=== PATIENT | female | born 1985 | race Caucasian/White ===

== ENCOUNTER 2017-01-21 23:30 | Observation (INO) | payer BC, OTHER ==
[2017-01-22] MEDS ORDERED: Sodium Chloride 0.9% 1,000 ML IV ONE ×3 (00:01→11:08)
[2017-01-22] MEDS ORDERED: Sodium Chloride 0.9% 1,000 ML ONE ×2 (00:06→04:59)
[2017-01-22 00:11] LABS: BASO % 0.4 % (0.0-2.0); EOS # 0.1 K/uL (0.0-0.7); EOS % 0.5 % (0.0-4.0); HEMATOCRIT 37.3 % (34.0-47.0); LYMPH # 3.8 K/uL (1.0-4.3); LYMPH % 36.6 % (20.0-40.0); MEAN CELL VOLUME 81.5 fL (81.0-99.0); MEAN CORPUSCULAR HEMOGLOBIN 26.7 pg (27.0-31.0); MEAN CORPUSCULAR HGB CONC 32.7 g/dL (33.0-37.0); MEAN PLATELET VOLUME 8.9 fL (7.2-11.7); MONO # 0.8 K/uL (0.0-0.8); MONO % 7.7 % (0.0-10.0); RED CELL DISTRIBUTION WIDTH 14.8 % (11.5-14.5); WHITE BLOOD COUNT 10.3 K/uL (4.8-10.8)
[2017-01-22 00:23] LABS: ALB/GLOB RATIO 1.5 (1.0-2.1); ALKALINE PHOSPHATASE 70 U/L (38-126); ALT/SGPT 30 U/L (9-52); AST/SGOT 24 U/L (14-36); BILIRUBIN,TOTAL 0.7 mg/dL (0.2-1.3); BLOOD UREA NITROGEN 9 mg/dL (7-17); CARBON DIOXIDE 18 mmol/L (22-30); CHLORIDE 101 mmol/L (98-107); GFR AFRICAN-AMERICAN > 60; GLUCOSE,RANDOM 90 mg/dL (65-105); POTASSIUM 3.9 mmol/L (3.6-5.2); SODIUM 136 mmol/L (132-148); TOTAL PROTEIN 7.8 g/dL (6.3-8.3)
[2017-01-22 03:37] LABS: RBC URINE 4 /hpf (0-3); URINE BACTERIA RARE (<OCC); URINE BILIRUBIN NEGATIVE (NEGATIVE); URINE BLOOD NEGATIVE (NEGATIVE); URINE COLOR Yellow (YELLOW); URINE GLUCOSE (UA) NORMAL (Normal); URINE KETONE 2+ mg/dL (NEGATIVE); URINE LEUKOCYTE ESTERASE NEG Leu/uL (Negative); URINE PROTEIN NEGATIVE (NEGATIVE); URINE UROBILINOGEN NORMAL mg/dL (0.2-1.0)
[2017-01-22] MEDS ORDERED: Capsaicin 0.025% Cream (60 gm) TOP STA (03:50)
[2017-01-22] MEDS ORDERED: Alum-Mag Hydrox-Simethicone Susp (30 mL) ONE (05:29)
[2017-01-22] MEDS ORDERED: Iodixanol 320 MG/ML 100 ML BOTTLE IV ONE (05:49)
--- NOTE | 2017-01-22 06:55 | C.PDOC ---
Time Seen by Provider: 01/21/17 23:56 Chief Complaint (Nursing): Abdominal Pain History Per: Patient Onset/Duration Of Symptoms: Days (3) Current Symptoms Are (Timing): Still Present Severity: Moderate Location Of Pain/Discomfort: Diffuse Quality Of Discomfort: Unable To Describe, "Pain" Associated Symptoms: Nausea, Vomiting, Diarrhea Alleviating Factors: None Last Bowel Movement: Today Additional History Per: Prior Records Past Medical History Reviewed: Historical Data, Nursing Documentation, Vital Signs Vital Signs: Last Vital Signs Temp 98.2 F 01/22/17 02:32 Pulse 55 L 01/22/17 05:50 Resp 17 01/22/17 05:50 BP 109/61 01/22/17 05:50 Pulse Ox 100 01/22/17 06:55 - Medical History PMH: Gastritis, Gastrointestinal Ulcer, Migraine Surgical History: Appendectomy (04/2014) - [facility] Procedures LAPAROSCOP APPENDECTOMY (05/07/14) Family History: States: Unknown Family Hx - Social History Hx Tobacco Use: Yes Hx Alcohol Use: Yes Hx Substance Use: Yes (Smokes Marijuana daily) - Immunization History Hx Tetanus Toxoid Vaccination: No Hx Influenza Vaccination: No Hx Pneumococcal Vaccination: No Review Of Systems Except As Marked, All Systems Reviewed And Found Negative. Constitutional: Negative for: Fever Cardiovascular: Negative for: Chest Pain Respiratory: Negative for: Shortness of Breath Gastrointestinal: Positive for: Nausea, Vomiting, Abdominal Pain, Diarrhea. Negative for: Melena, Hematochezia, Hematemesis Genitourinary: Negative for: Dysuria Musculoskeletal: Negative for: Neck Pain, Back Pain Skin: Negative for: Rash Neurological: Negative for: Weakness, Numbness, Seizures, Altered Mental Status Physical Exam - Physical Exam Appears: Other (Uncomfortable. Vomiting.) Skin: Normal Color, Warm, Dry Head: Atraumatic, Normacephalic Eye(s): bilateral: PERRL, EOMI Neck: Normal ROM, Supple Cardiovascular: Rhythm Regular Respiratory: Normal Breath Sounds, No Accessory Muscle Use Gastrointestinal/Abdominal: Soft, Tenderness (nonspecific), No Distention Back: No CVA Tenderness Extremity: Normal ROM Neurological/Psych: Oriented x3, Normal Motor, Normal Sensation ED Course And Treatment - Laboratory Results Result Diagrams: 01/22/17 00:06 01/22/17 00:06 Lab Interpretation: No Acute Changes Urine POC: Negative O2 Sat by Pulse Oximetry: 100 Pulse Ox Interpretation: Normal Progress - Interventions Interventions:: Observation, Intravenous fluid - Medications Administered Intravenous: Antiemetic, H-2 javy Disposition - Disposition Disposition Time: 07:00 Condition: FAIR - Clinical Impression Clinical Impression: Abdominal pain, Nausea and vomiting Physician Patient Turnover Patient Signed Over To: Josie Seals Handoff Comments: to f/up CT scan report and reassess/dispo pt.
[2017-01-22] MEDS ORDERED: Belladonna-Phenobarbital ONE (07:05)
--- NOTE | 2017-01-22 07:32 | CT ---
EXAM: CT Abdomen and Pelvis With Intravenous Contrast CLINICAL HISTORY: 31 years old, female; Pain; Abdominal pain; Prior surgery; Surgery type: Appendectomy; Patient HX: 05-07-14, . report faxed to [facility]; Additional info: Abdominal pain, vomiting, TECHNIQUE: Axial computed tomography images of the abdomen and pelvis with intravenous contrast. All CT scans at this facility use one or more dose reduction techniques, viz.: automated exposure control; ma/kV adjustment per patient size (including targeted exams where dose is matched to indication; i.e. head); or iterative reconstruction technique. Coronal and sagittal reformatted images were created and reviewed. CONTRAST: 100 mL of [id number] administered intravenously. EXAM DATE/TIME: 01/22/2017 5:39 AM COMPARISON: CT - ABD PELVIS IV CONTRAST ONLY 05/07/2014 5:56:41 PM FINDINGS: Lower thorax: No acute findings. ABDOMEN: Liver: Unremarkable. No mass. Gallbladder and bile ducts: Contracted gallbladder. No calcified stones. No ductal dilation. Pancreas: Unremarkable. No mass. No ductal dilation. Spleen: Unremarkable. No splenomegaly. Adrenals: Unremarkable. No mass. Kidneys and ureters: Unremarkable. No solid mass. No hydronephrosis. Stomach and bowel: Unremarkable. No dilatation of small or large bowel. No mucosal thickening. Appendix: Appendectomy. PELVIS: Bladder: Unremarkable. No mass. Reproductive: Unremarkable as visualized. ABDOMEN and PELVIS: Intraperitoneal space: Small amount of free fluid throughout the abdomen and pelvis. No free air. Bones/joints: No acute fracture. Soft tissues: Unremarkable. Vasculature: Unremarkable. No abdominal aortic aneurysm. Lymph nodes: No enlarged lymph nodes. IMPRESSION: Free fluid throughout abdomen and pelvis, no demonstrable etiology radiographically.
[2017-01-22] MEDS ORDERED: Morphine 4 MG/ML VIAL ONE (08:31)
--- NOTE | 2017-01-22 11:02 | CP.PCM.CON ---
History of Present Illness - History of Present Illness History of Present Illness: 31F w/ PMHx of gastritis presents to the ED w/ complaints of n/v/d and abdominal pain. Patient reports she has not been able to eat for the past three days. According to patient every time she eats she develops stomachaches. As per patient she decided to have fijian rice yesterday and about an hour after she developed fever/chills, nausea/vomiting, and diarrhea, non-bloody. At time of examination patient reported feeling slightly better. Patient reports having previous endoscopy at which time she was diagnosed with gastritis but cannot recall the year. She denies being on any medications at home. Last menstrual period was on 01/15/17. PMHx: as stated above Allergies: hydromorphone Surgical Hx: Appendectomy (2013) Review of Systems - Review of Systems Review of Systems: 12pt ROS unremarkable, except as stated in HPI Past Patient History - Past Medical History & Family History Past Medical History?: Yes - Past Social History Smoking Status: Light Smoker < 10 Cigarettes Daily - NEUROLOGICAL Hx Migraine: Yes - MUSCULOSKELETAL/RHEUMATOLOGICAL Hx Falls: No - GASTROINTESTINAL Hx Gastritis: Yes - PSYCHIATRIC Hx Substance Use: Yes (Smokes Marijuana daily) - SURGICAL HISTORY Hx Appendectomy: Yes (04/2014) - ANESTHESIA Hx Anesthesia: No Hx Anesthesia Reactions: No Hx Malignant Hyperthermia: No Meds Allergies/Adverse Reactions: Allergies Allergy/AdvReac Type Severity Reaction Status Date / Time hydromorphone [From Dilaudid] Allergy Verified 01/21/17 23:57 Physical Exam - Constitutional Appears: No Acute Distress, Other (sedated) - Head Exam Head Exam: ATRAUMATIC, NORMOCEPHALIC - Eye Exam Eye Exam: Normal appearance - ENT Exam ENT Exam: Mucous Membranes Moist - Respiratory Exam Respiratory Exam: NORMAL BREATHING PATTERN - Cardiovascular Exam Cardiovascular Exam: +S1, +S2 - GI/Abdominal Exam GI & Abdominal Exam: Soft, Tenderness - Extremities Exam Extremities exam: Negative for: calf tenderness - Neurological Exam Neurological exam: Alert - Psychiatric Exam Psychiatric exam: Normal Mood Results - Vital Signs Recent Vital Signs: Last Vital Signs Temp 98.1 F 01/22/17 08:14 Pulse 50 L 01/22/17 08:14 Resp 18 01/22/17 08:14 BP 123/78 01/22/17 08:14 Pulse Ox 100 01/22/17 08:14 - Labs Result Diagrams: 01/22/17 00:06 01/22/17 00:06 Assessment & Plan - Assessment and Plan (Free Text) Assessment: 31F w/ n/v/d & abdominal pain likely 2/2 gastroenteritis, r/o cholecystitis -NPO -Abd U/S demonstrated GB wall thickening @ 7mm and pericholecystic edema, will order HIDA to r/o acute cholecystitis -IVF -Anti-emetics/Analgesics -Appreciate GI recs -DVT/GI ppx Further recs per Dr. Daniel Fish PGY-2
--- NOTE | 2017-01-22 12:09 | CP.PCM.CON ---
<Jerson Santos - Last Filed: 01/22/17 12:17> History of Present Illness - History of Present Illness History of Present Illness: PGY4 Initial GI Note Poornima Bull is a 31F w/ hx of marijuana use and gastritis who presented to the ED with complaints of refractory vomiting. Pt states that onet has been for 12 hours. She denies any blood or coffee ground emesis. She states that she has had similar episodes two years ago and subsequently had an EGD which revealed only gastritis. Pt states that her episodes of vomiting were preceded by nausea for 2 days. She states that she also had fever, chills and diaphoresis. She also complains of abd pain, but was not able to establish a clear timeline. She notes that the pain coincided with her symptoms. Location diffuse but more in the epigastric area. Denies any aggravating or alleviating factors. Pt denies any recent sick contacts, abx use or hospitalization. She states that she also had inidan food which may have contributed to her symptoms. She also confirms using marijuana on a daily basis. Med hx: gastritis, refractory vomiting Surg hx: Denies Social hx: Etoh social, Smoking rarely, daily marijuana use Family hx: denies Endos hx: 2014 egd: gastritis as per pt Past Patient History - Past Medical History & Family History Past Medical History?: Yes - Past Social History Smoking Status: Light Smoker < 10 Cigarettes Daily - NEUROLOGICAL Hx Migraine: Yes - MUSCULOSKELETAL/RHEUMATOLOGICAL Hx Falls: No - GASTROINTESTINAL Hx Gastritis: Yes - PSYCHIATRIC Hx Substance Use: Yes (Smokes Marijuana daily) - SURGICAL HISTORY Hx Appendectomy: Yes (04/2014) - ANESTHESIA Hx Anesthesia: No Hx Anesthesia Reactions: No Hx Malignant Hyperthermia: No Meds Allergies/Adverse Reactions: Allergies Allergy/AdvReac Type Severity Reaction Status Date / Time hydromorphone [From Dilaudid] Allergy Verified 01/21/17 23:57 - Medications Medications: Current Medications Acetaminophen (Tylenol 325mg Tab) 650 mg PO Q6 PRN PRN Reason: Fever >100.4 F Sodium Chloride (Sodium Chloride 0.9%) 1,000 mls @ 90 mls/hr IV .Q11H7M ONE Stop: 01/22/17 22:14 Morphine Sulfate (Morphine) 2 mg IVP Q4 PRN PRN Reason: Pain, moderate (4-7) Ondansetron HCl (Zofran Inj) 4 mg IVP Q6H PRN PRN Reason: Nausea/Vomiting Promethazine HCl (Phenergan Inj) 25 mg IM Q6 PRN PRN Reason: Nausea/Vomiting Physical Exam - Constitutional Appears: In Acute Distress - Head Exam Head Exam: ATRAUMATIC, NORMOCEPHALIC - Eye Exam Eye Exam: Normal appearance - ENT Exam ENT Exam: Mucous Membranes Moist, Normal Exam - Respiratory Exam Respiratory Exam: Clear to Auscultation Bilateral, NORMAL BREATHING PATTERN. absent: Rales, Rhonchi, Wheezes, Respiratory Distress - Cardiovascular Exam Cardiovascular Exam: REGULAR RHYTHM, +S1, +S2 - GI/Abdominal Exam GI & Abdominal Exam: Guarding, Hyperactive Bowel Sounds, Soft, Tenderness ( epigastric area and RUQ). absent: Distended, Firm - Extremities Exam Extremities exam: Negative for: joint swelling, tenderness - Neurological Exam Neurological exam: Alert, Normal Gait, Oriented x3 - Psychiatric Exam Psychiatric exam: Agitated, Normal Affect Results - Vital Signs Recent Vital Signs: Last Vital Signs Temp 98.1 F 01/22/17 08:14 Pulse 50 L 01/22/17 08:14 Resp 18 01/22/17 08:14 BP 123/78 01/22/17 08:14 Pulse Ox 100 01/22/17 08:14 - Labs Result Diagrams: 01/22/17 00:06 01/22/17 00:06 Assessment & Plan - Assessment and Plan (Free Text) Assessment: Poornima Bull is a 31F w/ hx of chronic marijuana use who presents to the Ed with refractory vomiting. 1. Refractory Nausea and Vomiting, DDX: cyclic vomiting syndome vs gastroenteritis 2. Abd pain likely 2/2 to the above vs acute cholecystitis 3. Free fluid in abd; r/o cholecystitis Plan: -continue zofran for primary antiemetic, secondary promethazine -advance diet as tolerated - start on clears -culture stool, r/o c.diff -abd u/s to eval gallbladder contracted vs thicken wall on CT -CT abd reviewed with Dr. Mathew, gallbladder suspicious for contracted GM versus cholecystitis -surgery on board -support care -continue IV fluids D/W Dr. Mathew <Bradley Mathew - Last Filed: 01/22/17 15:05> Meds - Medications Medications: Current Medications Acetaminophen (Tylenol 325mg Tab) 650 mg PO Q6 PRN PRN Reason: Fever >100.4 F Sodium Chloride (Sodium Chloride 0.9%) 1,000 mls @ 90 mls/hr IV .Q11H7M ONE Stop: 01/22/17 22:14 Last Admin: 01/22/17 11:48 Dose: 90 mls/hr Ceftriaxone Sodium 1 gm/ (Sodium Chloride) 100 mls @ 100 mls/hr IVPB DAILY [facility] Last Admin: 01/22/17 13:02 Dose: 100 mls/hr Morphine Sulfate (Morphine) 2 mg IVP Q4 PRN PRN Reason: Pain, moderate (4-7) Last Admin: 01/22/17 11:50 Dose: 2 mg Ondansetron HCl (Zofran Inj) 4 mg IVP Q6H PRN PRN Reason: Nausea/Vomiting FIRST LINE Pantoprazole Sodium (Protonix Inj) 40 mg IVP DAILY [facility] Promethazine HCl (Phenergan Inj) 25 mg IM Q6 PRN PRN Reason: Nausea/Vomiting SECOND LINE Results - Vital Signs Recent Vital Signs: Last Vital Signs Temp 98.1 F 01/22/17 08:14 Pulse 50 L 01/22/17 08:14 Resp 18 01/22/17 08:14 BP 123/78 01/22/17 08:14 Pulse Ox 100 01/22/17 08:14 - Labs Result Diagrams: 01/22/17 00:06 01/22/17 00:06 Attending/Attestation - Attestation I have personally seen and examined this patient.: Yes I have fully participated in the care of the patient.: Yes I have reviewed all pertinent clinical information: Yes Notes (Text): 01/22/17 15:04 31 year old female with h/o marijuana use admitted with abdominal pain, nausea, and vomiting. 1. Abdominal pain 2. Nausea and vomiting Plan -GB looks abnormal on CT/US -recommend surgical evaluation -otherwsie ddx includes cyclic vomiting, gastroenteritis -labs ok -supportive care with IV hydration and pain control -anti-emetics as needed
--- NOTE | 2017-01-22 14:14 | US ---
HISTORY: ascites COMPARISON: CT abdomen and pelvis with contrast performed 01/22/17 TECHNIQUE: None available. FINDINGS: UTERUS: Measures 8.2 x 3.8 x 5.3 cm. Anteverted. ENDOMETRIUM: Measures 4 mm in diameter. CERVIX: No cervical abnormality identified. RIGHT OVARY: Measures 3.9 x 2.4 x 4.2 cm. 2.2 x 1.9 x 2.1 cm right ovarian follicle/cyst. Blood flow is demonstrated. LEFT OVARY: Measures 3.2 x 1.6 x 3.2 cm. Blood flow is demonstrated. FREE FLUID: Small fluid noted within the right and left lower quadrants. OTHER FINDINGS: None. IMPRESSION: 2.2 cm right ovarian follicle/cyst. Small free fluid noted within the right and left lower quadrants.
--- NOTE | 2017-01-22 14:17 | US ---
HISTORY: eval gallbadder, suspect cholecystitis COMPARISON: CT abdomen and pelvis with contrast performed 01/22/17 TECHNIQUE: Sonographic evaluation of the abdomen. FINDINGS: LIVER: Measures 14.2 cm in sagittal dimension and appears unremarkable. No focal hepatic mass identified. The main portal vein appears patent with normal directional flow. No intrahepatic bile duct dilatation. Small perihepatic ascites. GALLBLADDER: No gallstones. Gallbladder wall thickening measuring approximately 7 mm. Trace pericholecystic edema. Negative sonographic Brambila's sign as assessed by the seed pelleter. COMMON BILE DUCT: Measures 3 mm. PANCREAS: Not well visualized. RIGHT KIDNEY: Measures 11.3 x 3.8 x 4.8cm. No obstructing calculus or hydronephrosis identified. LEFT KIDNEY: Measures 11.8 x 4.9 x 5.0cm. No obstructing calculus or hydronephrosis identified. SPLEEN: Measures approximately 12.3 cm. AORTA: Limited views appear unremarkable. IVC: Limited views appear unremarkable. OTHER FINDINGS: None. IMPRESSION: Gallbladder wall thickening and trace pericholecystic edema. No evidence of gallstones. Negative sonographic Brambila's sign as assessed by the seed pelleter. Correlate clinically. Small perihepatic ascites.
[2017-01-22 16:08] VITALS: RESP 20
--- NOTE | 2017-01-22 17:42 | CP.PCM.PN ---
Subjective - Date & Time of Evaluation Date of Evaluation: 01/22/17 Time of Evaluation: 08:40 - Subjective Subjective: clinically same Objective - Vital Signs/Intake and Output Vital Signs (last 24 hours): Temp Pulse Resp BP Pulse Ox 98.5 F 60 20 96/58 L 98 01/22/17 15:00 01/22/17 15:00 01/22/17 15:00 01/22/17 15:00 01/22/17 15:00 Intake and Output: 01/22/17 01/22/17 06:59 18:59 Intake Total 360 Balance 360 - Medications Medications: Current Medications Acetaminophen (Tylenol 325mg Tab) 650 mg PO Q6 PRN PRN Reason: Fever >100.4 F Sodium Chloride (Sodium Chloride 0.9%) 1,000 mls @ 90 mls/hr IV .Q11H7M ONE Stop: 01/22/17 22:14 Last Admin: 01/22/17 11:48 Dose: 90 mls/hr Ceftriaxone Sodium 1 gm/ (Sodium Chloride) 100 mls @ 100 mls/hr IVPB DAILY [facility] Last Admin: 01/22/17 13:02 Dose: 100 mls/hr Morphine Sulfate (Morphine) 2 mg IVP Q4 PRN PRN Reason: Pain, moderate (4-7) Last Admin: 01/22/17 11:50 Dose: 2 mg Ondansetron HCl (Zofran Inj) 4 mg IVP Q6H PRN PRN Reason: Nausea/Vomiting FIRST LINE Pantoprazole Sodium (Protonix Inj) 40 mg IVP DAILY [facility] Promethazine HCl (Phenergan Inj) 25 mg IM Q6 PRN PRN Reason: Nausea/Vomiting SECOND LINE - Constitutional Appears: Well - Head Exam Head Exam: ATRAUMATIC, NORMAL INSPECTION, NORMOCEPHALIC - Eye Exam Eye Exam: EOMI, Normal appearance, PERRL Pupil Exam: NORMAL ACCOMODATION, PERRL - ENT Exam ENT Exam: Mucous Membranes Moist, Normal Exam - Neck Exam Neck Exam: Full ROM, Normal Inspection. absent: Lymphadenopathy - Respiratory Exam Respiratory Exam: Decreased Breath Sounds - Cardiovascular Exam Cardiovascular Exam: REGULAR RHYTHM, +S1, +S2 - GI/Abdominal Exam GI & Abdominal Exam: Soft, Diminished Bowel Sounds - Rectal Exam Rectal Exam: Deferred
--- NOTE | 2017-01-22 17:43 | CP.PCM.HP ---
Past Patient History - Past Medical History & Family History Past Medical History?: Yes - Past Social History Smoking Status: Light Smoker < 10 Cigarettes Daily - NEUROLOGICAL Hx Migraine: Yes - MUSCULOSKELETAL/RHEUMATOLOGICAL Hx Falls: No - GASTROINTESTINAL Hx Gastritis: Yes - PSYCHIATRIC Hx Substance Use: Yes (Smokes Marijuana daily) - SURGICAL HISTORY Hx Appendectomy: Yes (04/2014) - ANESTHESIA Hx Anesthesia: No Hx Anesthesia Reactions: No Hx Malignant Hyperthermia: No Meds Allergies/Adverse Reactions: Allergies Allergy/AdvReac Type Severity Reaction Status Date / Time hydromorphone [From Dilaudid] Allergy Verified 01/21/17 23:57 Physical Exam - Constitutional Appears: Well - Head Exam Head Exam: ATRAUMATIC, NORMAL INSPECTION, NORMOCEPHALIC - Eye Exam Eye Exam: EOMI, Normal appearance, PERRL Pupil Exam: NORMAL ACCOMODATION, PERRL - ENT Exam ENT Exam: Mucous Membranes Moist, Normal Exam - Neck Exam Neck exam: Positive for: Normal Inspection - Respiratory Exam Respiratory Exam: Decreased Breath Sounds - Cardiovascular Exam Cardiovascular Exam: REGULAR RHYTHM, +S1, +S2 - GI/Abdominal Exam GI & Abdominal Exam: Diminished Bowel Sounds, Soft - Rectal Exam Rectal Exam: Deferred Results - Vital Signs Recent Vital Signs: Last Vital Signs Temp 98.5 F 01/22/17 15:00 Pulse 60 01/22/17 15:00 Resp 20 01/22/17 15:00 BP 96/58 L 01/22/17 15:00 Pulse Ox 98 01/22/17 15:00 - Labs Result Diagrams: 01/22/17 00:06 01/22/17 00:06
--- NOTE | 2017-01-23 08:44 | CP.PCM.PN ---
<Leanna Pineda - Last Filed: 01/23/17 10:21> Subjective - Date & Time of Evaluation Date of Evaluation: 01/23/17 Time of Evaluation: 08:40 - Subjective Subjective: Gastroenterology Fellow/PGY5 Progress Note Patient notes continued right upper abdominal pain. No further vomiting after morphine last night. Admits to over ten episodes of bilious vomiting yesterday and one episode of diarrhea incontinence in ER. No further bowel movements. A 12 -point review of systems negative except for as above. Objective - Vital Signs/Intake and Output Vital Signs (last 24 hours): Temp Pulse Resp BP Pulse Ox 98.3 F 30 L 20 103/65 97 01/23/17 01:44 01/23/17 01:44 01/23/17 01:44 01/23/17 01:44 01/23/17 01:44 Intake and Output: 01/23/17 01/23/17 06:59 18:59 Intake Total 720 Balance 720 - Medications Medications: Current Medications Acetaminophen (Tylenol 325mg Tab) 650 mg PO Q6 PRN PRN Reason: Fever >100.4 F Ceftriaxone Sodium 1 gm/ (Sodium Chloride) 100 mls @ 100 mls/hr IVPB DAILY [facility] Last Admin: 01/22/17 13:02 Dose: 100 mls/hr Morphine Sulfate (Morphine) 2 mg IVP Q4 PRN PRN Reason: Pain, moderate (4-7) Last Admin: 01/22/17 11:50 Dose: 2 mg Ondansetron HCl (Zofran Inj) 4 mg IVP Q6H PRN PRN Reason: Nausea/Vomiting FIRST LINE Pantoprazole Sodium (Protonix Inj) 40 mg IVP DAILY [facility] Promethazine HCl (Phenergan Inj) 25 mg IM Q6 PRN PRN Reason: Nausea/Vomiting SECOND LINE - Constitutional Appears: Non-toxic, No Acute Distress - Head Exam Head Exam: ATRAUMATIC, NORMOCEPHALIC - Eye Exam Eye Exam: EOMI, PERRL Pupil Exam: PERRL. absent: Miosis, Mydriatic - ENT Exam ENT Exam: Mucous Membranes Moist, Normal Oropharynx - Neck Exam Neck Exam: Full ROM, Normal Inspection - Respiratory Exam Respiratory Exam: Clear to Ausculation Bilateral. absent: Rales, Rhonchi, Wheezes - Cardiovascular Exam Cardiovascular Exam: RRR, +S1, +S2. absent: Gallop, Rubs - GI/Abdominal Exam GI & Abdominal Exam: Soft, Tenderness, Normal Bowel Sounds. absent: Distended, Firm, Guarding, Rigid, Organomegaly, Rebound Additional comments: RUQ tenderness to palpation - Extremities Exam Extremities Exam: Full ROM. absent: Pedal Edema - Neurological Exam Neurological Exam: Alert, Awake - Psychiatric Exam Psychiatric exam: Normal Affect, Normal Mood - Skin Skin Exam: Dry, Intact, Normal Color, Warm Assessment and Plan - Assessment and Plan (Free Text) Assessment: 31 year old female with history of chronic marijuana useand appendectomy presenting with abdominal pain and vomiting. Active treatment of intractable vomiting and abdominal pain. CT A/P and Ultrasound concerning for acalculous cholecystitis. Prior EGD 2015 endorsed to show Gastritis. No prior colonoscopy. Plan: >DDx: cholecystitis, cyclic vomiting syndrome >surgery managing- NPO, pending HIDA scan -follow up recommendations >no further episodes of vomiting or diarrhea >supportive care: IVFs, pain control, anti-emetics, PPI >will follow clinical course <Dixon Dunaway - Last Filed: 01/23/17 10:32> Objective - Vital Signs/Intake and Output Vital Signs (last 24 hours): Temp Pulse Resp BP Pulse Ox 98.3 F 30 L 20 103/65 97 01/23/17 01:44 01/23/17 01:44 01/23/17 01:44 01/23/17 01:44 01/23/17 01:44 Intake and Output: 01/23/17 01/23/17 06:59 18:59 Intake Total 720 Balance 720 - Medications Medications: Current Medications Acetaminophen (Tylenol 325mg Tab) 650 mg PO Q6 PRN PRN Reason: Fever >100.4 F Ceftriaxone Sodium 1 gm/ (Sodium Chloride) 100 mls @ 100 mls/hr IVPB DAILY [facility] Last Admin: 01/22/17 13:02 Dose: 100 mls/hr Morphine Sulfate (Morphine) 2 mg IVP Q4 PRN PRN Reason: Pain, moderate (4-7) Last Admin: 01/22/17 11:50 Dose: 2 mg Ondansetron HCl (Zofran Inj) 4 mg IVP Q6H PRN PRN Reason: Nausea/Vomiting FIRST LINE Pantoprazole Sodium (Protonix Inj) 40 mg IVP DAILY [facility] Promethazine HCl (Phenergan Inj) 25 mg IM Q6 PRN PRN Reason: Nausea/Vomiting SECOND LINE Attending/Attestation - Attestation I have personally seen and examined this patient.: Yes I have fully participated in the care of the patient.: Yes I have reviewed all pertinent clinical information, including history, physical exam and plan: Yes Notes (Text): 01/23/17 10:30 I have seen and examined patient with GI fellow. No acute events overnight. She complains of ongoing abdominal "soreness" but denies any recurrent nausea, vomiting, fever/chills. Review of vitals from today are normal. Substance abuse Abdominal pain, vomiting - suspected cholecystitis - NPO - Patient scheduled for HIDA scan today, will follow up results - Follow up surgical recommendations - Anti-emetic therapy PRN - LFTs stable, continue to monitor - Will follow patient clinical course
--- NOTE | 2017-01-23 11:24 | CP.PCM.PN ---
Subjective - Date & Time of Evaluation Date of Evaluation: 01/23/17 Time of Evaluation: 08:20 - Subjective Subjective: clinically same Objective - Vital Signs/Intake and Output Vital Signs (last 24 hours): Temp Pulse Resp BP Pulse Ox 98.3 F 30 L 20 103/65 97 01/23/17 01:44 01/23/17 01:44 01/23/17 01:44 01/23/17 01:44 01/23/17 01:44 Intake and Output: 01/23/17 01/23/17 06:59 18:59 Intake Total 720 Balance 720 - Medications Medications: Current Medications Acetaminophen (Tylenol 325mg Tab) 650 mg PO Q6 PRN PRN Reason: Fever >100.4 F Ceftriaxone Sodium 1 gm/ (Sodium Chloride) 100 mls @ 100 mls/hr IVPB DAILY [facility] Last Admin: 01/22/17 13:02 Dose: 100 mls/hr Morphine Sulfate (Morphine) 2 mg IVP Q4 PRN PRN Reason: Pain, moderate (4-7) Last Admin: 01/22/17 11:50 Dose: 2 mg Ondansetron HCl (Zofran Inj) 4 mg IVP Q6H PRN PRN Reason: Nausea/Vomiting FIRST LINE Pantoprazole Sodium (Protonix Inj) 40 mg IVP DAILY [facility] Promethazine HCl (Phenergan Inj) 25 mg IM Q6 PRN PRN Reason: Nausea/Vomiting SECOND LINE - Constitutional Appears: Well - Head Exam Head Exam: ATRAUMATIC, NORMAL INSPECTION, NORMOCEPHALIC - Eye Exam Eye Exam: EOMI, Normal appearance, PERRL Pupil Exam: NORMAL ACCOMODATION, PERRL - ENT Exam ENT Exam: Mucous Membranes Moist, Normal Exam - Neck Exam Neck Exam: Full ROM, Normal Inspection. absent: Lymphadenopathy - Respiratory Exam Respiratory Exam: Decreased Breath Sounds - Cardiovascular Exam Cardiovascular Exam: REGULAR RHYTHM, +S1, +S2 - GI/Abdominal Exam GI & Abdominal Exam: Soft, Diminished Bowel Sounds - Rectal Exam Rectal Exam: Deferred Assessment and Plan - Assessment and Plan (Free Text) Plan: Patient's has now vomiting is decreased abdominal pain is decreased status post seen by GI doctor Patients to be seen by psych doctor Patient will continue with the ceftriaxone morphine as needed for pain Zofran Follow-up with GI Possible cyclic vomiting syndrome will continue the same status post seen by a GI today Follow-up with the Dr. Sanchez Continue same CT scan revealed free fluid throughout the abdomen and pelvis no demonstrable etiology HIDA scan normal hepatobiliary scan cystic duct is present awaiting follow-up with the surgical surgery today
--- NOTE | 2017-01-23 12:04 | NM ---
PROCEDURE: Nuclear Medicine Hepatobiliary Scan HISTORY: r/o cholecystitis COMPARISON: January 22, 2017. Abdominal ultrasound January 22, 2017. CT abdomen and pelvis TECHNIQUE: 6.0 mCi of technetium 99m Mebrofenin was administered intravenously. Planar images of the abdomen were obtained at 5 min intervals to 60 mins. Delayed images were also obtained. FINDINGS: LIVER: Timely and homogenous uptake. COMMON BILE DUCT: identified at 10 mins. GALLBLADDER: identified at 15 mins. SMALL BOWEL: Identified at 15 mins. IMPRESSION: Normal Hepatobiliary Scan. The cystic duct is patent.
--- NOTE | 2017-01-23 18:33 | CP.PCM.PN ---
Subjective - Date & Time of Evaluation Date of Evaluation: 01/23/17 Time of Evaluation: 07:45 - Subjective Subjective: Patient seen and examined this morning. Patient reports continued abdominal pain , however as per patient abdominal pain has improved since admission. Patient denies nausea/vomiting. No acute events over night. Will follow up HIDA Objective - Vital Signs/Intake and Output Vital Signs (last 24 hours): Temp Pulse Resp BP Pulse Ox 98.4 F 63 20 99/62 L 100 01/23/17 15:00 01/23/17 15:00 01/23/17 15:00 01/23/17 15:00 01/23/17 15:00 Intake and Output: 01/23/17 01/23/17 06:59 18:59 Intake Total 720 Balance 720 - Medications Medications: Current Medications Acetaminophen (Tylenol 325mg Tab) 650 mg PO Q6 PRN PRN Reason: Fever >100.4 F Ceftriaxone Sodium 1 gm/ (Sodium Chloride) 100 mls @ 100 mls/hr IVPB DAILY [facility] Last Admin: 01/23/17 11:24 Dose: 100 mls/hr Morphine Sulfate (Morphine) 2 mg IVP Q4 PRN PRN Reason: Pain, moderate (4-7) Last Admin: 01/23/17 18:08 Dose: 2 mg Ondansetron HCl (Zofran Inj) 4 mg IVP Q6H PRN PRN Reason: Nausea/Vomiting FIRST LINE Pantoprazole Sodium (Protonix Inj) 40 mg IVP DAILY [facility] Last Admin: 01/23/17 11:23 Dose: 40 mg Promethazine HCl (Phenergan Inj) 25 mg IM Q6 PRN PRN Reason: Nausea/Vomiting SECOND LINE - Constitutional Appears: No Acute Distress - Head Exam Head Exam: NORMOCEPHALIC - Eye Exam Eye Exam: Normal appearance - ENT Exam ENT Exam: Mucous Membranes Moist - Respiratory Exam Respiratory Exam: NORMAL BREATHING PATTERN - Cardiovascular Exam Cardiovascular Exam: +S1, +S2 - GI/Abdominal Exam GI & Abdominal Exam: Soft, Tenderness. absent: Distended, Firm, Guarding - Neurological Exam Neurological Exam: Alert, Awake, Oriented x3 - Psychiatric Exam Psychiatric exam: Normal Mood - Skin Skin Exam: Dry, Intact, Warm Assessment and Plan - Assessment and Plan (Free Text) Assessment: 31F w/ n/v/d & abdominal pain likely 2/2 gastroenteritis, r/o cholecystitis -NPO -Abd U/S demonstrated GB wall thickening @ 7mm and pericholecystic edema, will order HIDA to r/o acute cholecystitis -If HIDA -, will advance patient diet as tolerated -IVF -Anti-emetics/Analgesics -Appreciate GI recs -DVT/GI ppx Further recs per Dr. Daniel Fish PGY-2
--- NOTE | 2017-01-24 07:37 | CP.PCM.PN ---
<Leanna Pineda - Last Filed: 01/24/17 08:04> Subjective - Date & Time of Evaluation Date of Evaluation: 01/24/17 Time of Evaluation: 07:34 - Subjective Subjective: Gastroenterology Fellow/PGY5 Progress Note Patient notes resolved right upper abdominal pain. Tolerating liquid diet. No bowel movement yesterday. A 12-point review of systems negative except for as above. Objective - Vital Signs/Intake and Output Vital Signs (last 24 hours): Temp Pulse Resp BP Pulse Ox 98.1 F 60 20 105/70 100 01/24/17 00:00 01/24/17 00:00 01/24/17 00:00 01/24/17 00:00 01/24/17 00:00 Intake and Output: 01/24/17 01/24/17 06:59 18:59 Intake Total 150 Balance 150 - Medications Medications: Current Medications Acetaminophen (Tylenol 325mg Tab) 650 mg PO Q6 PRN PRN Reason: Fever >100.4 F Ceftriaxone Sodium 1 gm/ (Sodium Chloride) 100 mls @ 100 mls/hr IVPB DAILY [facility] Last Admin: 01/23/17 11:24 Dose: 100 mls/hr Morphine Sulfate (Morphine) 2 mg IVP Q4 PRN PRN Reason: Pain, moderate (4-7) Last Admin: 01/24/17 00:39 Dose: 2 mg Ondansetron HCl (Zofran Inj) 4 mg IVP Q6H PRN PRN Reason: Nausea/Vomiting FIRST LINE Pantoprazole Sodium (Protonix Inj) 40 mg IVP DAILY [facility] Last Admin: 01/23/17 11:23 Dose: 40 mg Promethazine HCl (Phenergan Inj) 25 mg IM Q6 PRN PRN Reason: Nausea/Vomiting SECOND LINE - Constitutional Appears: Non-toxic, No Acute Distress - Head Exam Head Exam: ATRAUMATIC, NORMOCEPHALIC - Eye Exam Eye Exam: EOMI, PERRL Pupil Exam: PERRL. absent: Miosis, Mydriatic - ENT Exam ENT Exam: Mucous Membranes Moist, Normal Oropharynx - Neck Exam Neck Exam: Full ROM, Normal Inspection - Respiratory Exam Respiratory Exam: Clear to Ausculation Bilateral. absent: Rales, Rhonchi, Wheezes - Cardiovascular Exam Cardiovascular Exam: RRR, +S1, +S2. absent: Gallop, Rubs - GI/Abdominal Exam GI & Abdominal Exam: Soft, Normal Bowel Sounds. absent: Distended, Firm, Guarding, Rigid, Tenderness, Organomegaly, Rebound - Extremities Exam Extremities Exam: Full ROM. absent: Pedal Edema - Neurological Exam Neurological Exam: Alert, Awake - Psychiatric Exam Psychiatric exam: Normal Affect, Normal Mood - Skin Skin Exam: Dry, Intact, Normal Color, Warm Assessment and Plan - Assessment and Plan (Free Text) Assessment: 31 year old female with history of chronic marijuana useand appendectomy presenting with abdominal pain and vomiting. Active treatment of intractable vomiting and abdominal pain. CT A/P and Ultrasound concerning for cholecystitis. Prior EGD 2015 endorsed to show Gastritis. No prior colonoscopy. Plan: >HIDA- normal >likely cyclic vomiting syndrome 2/2 cannibus use >counseled on cannibus cessation >surgery managing- follow up recommendations >okay to advance diet form GI standpoint >thank you for opportunity to participate in the care of this patient <Dixon Dunaway - Last Filed: 01/24/17 09:07> Objective - Vital Signs/Intake and Output Vital Signs (last 24 hours): Temp Pulse Resp BP Pulse Ox 98.7 F 65 20 103/68 99 01/24/17 08:34 01/24/17 08:34 01/24/17 08:34 01/24/17 08:34 01/24/17 08:34 Intake and Output: 01/24/17 01/24/17 06:59 18:59 Intake Total 150 Balance 150 - Medications Medications: Current Medications Acetaminophen (Tylenol 325mg Tab) 650 mg PO Q6 PRN PRN Reason: Fever >100.4 F Famotidine (Pepcid) 20 mg PO DAILY [facility] Morphine Sulfate (Morphine) 2 mg IVP Q4 PRN PRN Reason: Pain, moderate (4-7) Last Admin: 01/24/17 00:39 Dose: 2 mg Ondansetron HCl (Zofran Inj) 4 mg IVP Q6H PRN PRN Reason: Nausea/Vomiting FIRST LINE Promethazine HCl (Phenergan Inj) 25 mg IM Q6 PRN PRN Reason: Nausea/Vomiting SECOND LINE Attending/Attestation - Attestation I have personally seen and examined this patient.: Yes I have fully participated in the care of the patient.: Yes I have reviewed all pertinent clinical information, including history, physical exam and plan: Yes Notes (Text): 01/24/17 09:04 I have seen and examined patient with GI fellow. No acute events overnight, she is seen sitting in bed eating breakfast, appears quite comfortable. She denies abdominal pain or recurrent episodes of vomiting. Review of vitals from today are normal. Substance abuse (marijuana) Abdominal pain, vomiting - resolved. Etiology likely secondary to ongoing marijuana use. HIDA reviewed by me, negative - Diet as tolerated - Would discontinue antibiotic therapy, no clinical features of cholecystitis - May use oral H2 javy therapy PRN - Marijuana cessation counseling - From GI perspective, ok to discharge home with subsequent outpatient follow up. Office contact information provided to patient. Will sign off case, please reconsult as necessary, thank you.
[2017-01-24 08:36] VITALS: BP 103/68; PULSE 65; TEMP 98.7; O2SAT 99
--- NOTE | 2017-01-24 09:23 | CP.PCM.PN ---
Subjective - Date & Time of Evaluation Date of Evaluation: 01/24/17 Time of Evaluation: 06:50 - Subjective Subjective: Pt S&E. Reports she no longer has abdominal pain. Tolerating liquid diet. + flatus. Denies n/v. HIDA scan negative. Objective - Vital Signs/Intake and Output Vital Signs (last 24 hours): Temp Pulse Resp BP Pulse Ox 98.7 F 65 20 103/68 99 01/24/17 08:34 01/24/17 08:34 01/24/17 08:34 01/24/17 08:34 01/24/17 08:34 Intake and Output: 01/24/17 01/24/17 06:59 18:59 Intake Total 150 Balance 150 - Medications Medications: Current Medications Acetaminophen (Tylenol 325mg Tab) 650 mg PO Q6 PRN PRN Reason: Fever >100.4 F Famotidine (Pepcid) 20 mg PO DAILY [facility] Morphine Sulfate (Morphine) 2 mg IVP Q4 PRN PRN Reason: Pain, moderate (4-7) Last Admin: 01/24/17 00:39 Dose: 2 mg Ondansetron HCl (Zofran Inj) 4 mg IVP Q6H PRN PRN Reason: Nausea/Vomiting FIRST LINE Promethazine HCl (Phenergan Inj) 25 mg IM Q6 PRN PRN Reason: Nausea/Vomiting SECOND LINE - Constitutional Appears: No Acute Distress - Head Exam Head Exam: NORMOCEPHALIC - Eye Exam Eye Exam: Normal appearance - ENT Exam ENT Exam: Mucous Membranes Moist - Respiratory Exam Respiratory Exam: NORMAL BREATHING PATTERN - Cardiovascular Exam Cardiovascular Exam: +S1, +S2 - GI/Abdominal Exam GI & Abdominal Exam: Soft - Neurological Exam Neurological Exam: Alert, Awake, Oriented x3 - Psychiatric Exam Psychiatric exam: Normal Mood - Skin Skin Exam: Dry, Warm Assessment and Plan - Assessment and Plan (Free Text) Assessment: 31F w/ n/v/d & abdominal pain likely 2/2 gastroenteritis -Regular diet -HIDA scan negative -From surgical standpoint patient may be clear for discharge if she tolerates regular diet. -DVT/GI ppx -No further surgical intervention needed at this present time Further recs per Dr. Daniel Fish PGY-2
--- NOTE | 2017-01-24 09:47 | CP.PCM.PN ---
Subjective - Date & Time of Evaluation Date of Evaluation: 01/24/17 Time of Evaluation: 08:00 - Subjective Subjective: clinically same Objective - Vital Signs/Intake and Output Vital Signs (last 24 hours): Temp Pulse Resp BP Pulse Ox 98.7 F 65 20 103/68 99 01/24/17 08:34 01/24/17 08:34 01/24/17 08:34 01/24/17 08:34 01/24/17 08:34 Intake and Output: 01/24/17 01/24/17 06:59 18:59 Intake Total 150 Balance 150 - Medications Medications: Current Medications Acetaminophen (Tylenol 325mg Tab) 650 mg PO Q6 PRN PRN Reason: Fever >100.4 F Famotidine (Pepcid) 20 mg PO DAILY [facility] Morphine Sulfate (Morphine) 2 mg IVP Q4 PRN PRN Reason: Pain, moderate (4-7) Last Admin: 01/24/17 00:39 Dose: 2 mg Ondansetron HCl (Zofran Inj) 4 mg IVP Q6H PRN PRN Reason: Nausea/Vomiting FIRST LINE Promethazine HCl (Phenergan Inj) 25 mg IM Q6 PRN PRN Reason: Nausea/Vomiting SECOND LINE - Constitutional Appears: Well - Head Exam Head Exam: ATRAUMATIC, NORMAL INSPECTION, NORMOCEPHALIC - Eye Exam Eye Exam: EOMI, Normal appearance, PERRL Pupil Exam: NORMAL ACCOMODATION, PERRL - ENT Exam ENT Exam: Mucous Membranes Moist, Normal Exam - Neck Exam Neck Exam: Full ROM, Normal Inspection. absent: Lymphadenopathy - Respiratory Exam Respiratory Exam: Decreased Breath Sounds - Cardiovascular Exam Cardiovascular Exam: REGULAR RHYTHM, +S1, +S2 - GI/Abdominal Exam GI & Abdominal Exam: Soft, Diminished Bowel Sounds - Rectal Exam Rectal Exam: Deferred
== END 2017-01-24 16:45 | disposition home or self-care (01) ==
LOC: C.ER 23:30 → C.9E 01-22 09:47 → C.3T 01-22 10:28
PROVIDERS: ADMIT Internal Medicine Nephrology; ATTEND Internal Medicine Nephrology
DX: R11.2 Nausea with vomiting, unspecified (principal); F12.10 Cannabis abuse, uncomplicated; R32 Unspecified urinary incontinence; Z87.891 Personal history of nicotine dependence
CPT/HCPCS: 74177; 76700; 76856; 78226; 80053; 81001; 83520; 83690; 84703; 85025; 87045; 96361; 96365; 96372; 96375; 96376; 99285; A9537; C9113; G0378; G0480; J0696; J1630; J2270; J2405; J2765; J7040; Q9967

== ENCOUNTER 2017-01-31 19:35 | Observation (INO) | payer BC ==
[2017-01-31] MEDS ORDERED: Sodium Chloride 0.9% 1,000 ML IV ONE ×2 (20:11→21:27)
[2017-01-31] MEDS ORDERED: Sodium Chloride 0.9% 1,000 ML ONE ×2 (20:16→21:30)
[2017-01-31] MEDS ORDERED: Morphine 4 MG/ML VIAL ONE (20:16)
--- NOTE | 2017-01-31 20:18 | C.PDOC ---
History Of Present Illness Poornima Bull is a 31 y/o female who was recently admitted to [facility] for intractable vomiting and gastritis, and was discharged from the hospital on Wednesday01/24/17. Had multiple studies including CT, US, and Hyda scan with no diagnostic results. Patient states after eating a pork belly taco at work today, her symptoms returned. Currently complaining of abdominal pain, vomiting, and diarrhea. 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 PMD: Dr. Herndon Time Seen by Provider: 01/31/17 20:00 Chief Complaint (Nursing): Abdominal Pain History Per: Patient History/Exam Limitations: no limitations Onset/Duration Of Symptoms: Sudden Onset (earlier today) Current Symptoms Are (Timing): Still Present Associated Symptoms: Vomiting Additional History Per: Family Past Medical History Reviewed: Historical Data, Nursing Documentation, Vital Signs Vital Signs: Last Vital Signs Temp 98.3 F 01/31/17 19:55 Pulse 76 01/31/17 19:55 Resp 18 01/31/17 19:55 BP 108/57 L 01/31/17 19:55 Pulse Ox 100 01/31/17 21:43 - Medical History PMH: Gastritis, Gastrointestinal Ulcer, Migraine Surgical History: Appendectomy (04/2014) - [facility] LAPAROSCOP APPENDECTOMY (05/07/14) Family History: States: Unknown Family Hx - Social History Hx Tobacco Use: Yes Hx Alcohol Use: No Hx Substance Use: Yes (Smokes Marijuana daily) - Immunization History Hx Tetanus Toxoid Vaccination: No Hx Influenza Vaccination: No Hx Pneumococcal Vaccination: No Review Of Systems Except As Marked, All Systems Reviewed And Found Negative. Constitutional: Negative for: Fever Gastrointestinal: Positive for: Nausea, Vomiting, Abdominal Pain Physical Exam - Physical Exam Appears: Non-toxic Skin: Normal Color, Warm, Dry Head: Atraumatic, Normacephalic Eye(s): bilateral: Normal Inspection, PERRL, EOMI Nose: Normal Throat: Normal Neck: Normal, Supple Chest: Symmetrical Cardiovascular: Rhythm Regular, No Murmur Respiratory: Normal Breath Sounds, No Accessory Muscle Use Gastrointestinal/Abdominal: Soft, Tenderness (Epigastric) Back: Normal Inspection, No Vertebral Tenderness Extremity: Normal ROM, No Deformity Neurological/Psych: Oriented x3, Normal Speech, Normal Motor ED Course And Treatment O2 Sat by Pulse Oximetry: 100 (RA) Pulse Ox Interpretation: Normal Medical Decision Making Medical Decision Making: Time: 20:11 Initial Plan: --Sodium chloride 1000ml at 1000 mls/hr IV --Morphine 4 mg IV --Pepcid 20 mg IV --Zofran 8 mg IV Time: 21:27 --Sodium chloride IV 1000 ml at 1000 mls/hr --Morphine 2 mg IV On re-eval patient still in pain and with nausea. Spoke with Dr. Ramírez, will Obs for the night. Disposition Discussed With : Silvina Ramírez Counseled Patient/Family Regarding: Studies Performed - Disposition Referrals: Rita Herndon MD [Primary Care Provider] - Disposition: HOSPITALIZED Disposition Time: 23:20 Condition: STABLE Forms: [facility] (Nepali) - POA Present On Arrival: None - Clinical Impression Clinical Impression: Nausea, Gastritis - Scribe Statement The provider has reviewed the documentation as recorded by the Scribe Tiffanie Huerta All medical record entries made by the Scribe were at my direction and personally dictated by me. I have reviewed the chart and agree that the record accurately reflects my personal performance of the history, physical exam, medical decision making, and the department course for this patient. I have also personally directed, reviewed, and agree with the discharge instructions and disposition. Decision To Admit - Pt Status Changed To: Hospital Disposition Of: Observation - . Bed Request Type: Regular Patient Diagnosis: Nausea, Gastritis
[2017-01-31] MEDS ORDERED: Aluminum Hydroxide/Magnesium Hydroxide Susp (30 mL) PO STA (23:12)
[2017-01-31] MEDS ORDERED: Aluminum Hydroxide/Magnesium Hydroxide Susp (30 mL) ONE (23:17)
[2017-02-01] MEDS ORDERED: Dextrose 5%/0.45% NS 1,000 ML IV SCH (01:00)
[2017-02-01 01:18] LABS: BASO % 0.4 % (0.0-2.0); EOS # 0.1 K/uL (0.0-0.7); EOS % 0.9 % (0.0-4.0); HEMATOCRIT 36.8 % (34.0-47.0); LYMPH # 1.7 K/uL (1.0-4.3); LYMPH % 16.3 % (20.0-40.0); MEAN CELL VOLUME 81.1 fL (81.0-99.0); MEAN CORPUSCULAR HEMOGLOBIN 26.1 pg (27.0-31.0); MEAN CORPUSCULAR HGB CONC 32.1 g/dL (33.0-37.0); MEAN PLATELET VOLUME 9.6 fL (7.2-11.7); MONO # 0.6 K/uL (0.0-0.8); MONO % 5.7 % (0.0-10.0); NRBC % 0.1 % (0.0-2.0); RED CELL DISTRIBUTION WIDTH 14.6 % (11.5-14.5); WHITE BLOOD COUNT 10.5 K/uL (4.8-10.8)
[2017-02-01 01:23] LABS: CHLORIDE 99 mmol/L (98-107); POTASSIUM 3.4 mmol/L (3.6-5.2); SODIUM 137 mmol/L (132-148)
[2017-02-01 01:24] LABS: INR 1.1
[2017-02-01] MEDS ORDERED: Dextrose 5%/0.45% NS 1,000 ML IV ONE (01:24)
[2017-02-01 01:25] LABS: GFR AFRICAN-AMERICAN > 60
[2017-02-01 01:26] LABS: ALB/GLOB RATIO 1.5 (1.0-2.1); ALKALINE PHOSPHATASE 79 U/L (38-126); ALT/SGPT 40 U/L (9-52); AST/SGOT 25 U/L (14-36); BILIRUBIN,TOTAL 0.6 mg/dL (0.2-1.3); BLOOD UREA NITROGEN 10 mg/dL (7-17); CALCIUM 9.7 mg/dl (8.6-10.4); CARBON DIOXIDE 18 mmol/L (22-30); GLUCOSE,RANDOM 90 mg/dL (65-105); TOTAL PROTEIN 7.5 g/dL (6.3-8.3)
--- NOTE | 2017-02-01 09:10 | CP.PCM.CON ---
<Edis Strong - Last Filed: 02/01/17 13:46> History of Present Illness - History of Present Illness History of Present Illness: PGY5 GI Fellow Consult Note Patient is a 31yo female with PMHx significant for recurrent nausea/vomiting, migraines, marijuana use (therapeutic for migraines) who presented to the ED with recurrent nausea, vomiting. She was seen and treated in house from 01/22- (one week ago) for similar symptoms. 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 She tried smoking marijuana to relieve her symptoms and had temporary relief but developed burning epigastric pain which radiated to her chest and abdomen. As symptoms worsened, she came to the ED for further evaluation. She states that she has had episodes like this, practically yearly since 2006. On initially meeting the patient she is resting comfortably and currently does not feel nauseated. She has not tried to eat since arrival. Morphin, Zofran, Phenergan and Pepcid have been given since arrival. She denies any weight loss, hematochezia, melena, hematemesis, dysphagia. PMHx: See HPI PSHx: Appendectomy FHx: Discussed with patient and she denies any significant family history Social: Admits to marijuana use, EtOH and social tobacco use Endo: Self reported EGD in 2014 - gastritis 12 system ROS performed and negative except where stated. Past Patient History - Past Medical History & Family History Past Medical History?: Yes - Past Social History Smoking Status: Light Smoker < 10 Cigarettes Daily - NEUROLOGICAL Hx Migraine: Yes - MUSCULOSKELETAL/RHEUMATOLOGICAL Hx Falls: No - GASTROINTESTINAL Hx Gastritis: Yes - PSYCHIATRIC Hx Substance Use: Yes (Smokes Marijuana daily) - SURGICAL HISTORY Hx Appendectomy: Yes (04/2014) - ANESTHESIA Hx Anesthesia: No Hx Anesthesia Reactions: No Hx Malignant Hyperthermia: No Meds Allergies/Adverse Reactions: Allergies Allergy/AdvReac Type Severity Reaction Status Date / Time hydromorphone [From Dilaudid] AdvReac Verified 01/31/17 19:59 - Medications Medications: Current Medications Enoxaparin Sodium (Lovenox) 40 mg SC DAILY [facility] Dextrose/Sodium Chloride (Dextrose 5%/0.45% Ns 1000 Ml) 1,000 mls @ 75 mls/hr IV .[id number] [facility] Last Admin: 02/01/17 01:25 Dose: 75 mls/hr Metoclopramide HCl (Reglan) 4 mg IVP Q4 PRN PRN Reason: Nausea/Vomiting Last Admin: 02/01/17 04:07 Dose: 4 mg Morphine Sulfate (Morphine) 2 mg IVP Q6 PRN PRN Reason: Pain, moderate (4-7) Last Admin: 02/01/17 04:06 Dose: 2 mg Ondansetron HCl (Zofran Inj) 4 mg IVP Q4 PRN PRN Reason: Nausea/Vomiting Last Admin: 02/01/17 02:45 Dose: 4 mg Pantoprazole Sodium (Protonix Inj) 40 mg IVP DAILY [facility] Physical Exam - Constitutional Appears: Non-toxic, No Acute Distress - Eye Exam Eye Exam: EOMI, PERRL - ENT Exam ENT Exam: Mucous Membranes Moist - Respiratory Exam Respiratory Exam: Clear to Auscultation Bilateral. absent: Rales, Rhonchi, Wheezes - Cardiovascular Exam Cardiovascular Exam: RRR, +S1, +S2 - GI/Abdominal Exam GI & Abdominal Exam: Normal Bowel Sounds, Soft. absent: Distended, Firm, Guarding, Rigid, Tenderness - Extremities Exam Extremities exam: Positive for: normal inspection. Negative for: pedal edema - Neurological Exam Neurological exam: Alert, Oriented x3 - Psychiatric Exam Psychiatric exam: Normal Affect, Normal Mood - Skin Skin Exam: Dry, Warm Results - Vital Signs Recent Vital Signs: Last Vital Signs Temp 98.9 F 02/01/17 08:52 Pulse 64 02/01/17 08:52 Resp 16 02/01/17 08:52 BP 95/50 L 02/01/17 08:52 Pulse Ox 99 02/01/17 08:52 - Labs Result Diagrams: 02/01/17 01:05 02/01/17 01:05 Labs: Laboratory Results - last 24 hr 02/01/17 02/01/17 02/01/17 01:05 01:05 01:05 WBC 10.5 RBC 4.54 Hgb 11.8 Hct 36.8 MCV 81.1 MCH 26.1 L MCHC 32.1 L RDW 14.6 H Plt Count 371 MPV 9.6 Neut % (Auto) 76.7 H Lymph % (Auto) 16.3 L [place] % (Auto) 5.7 Eos % (Auto) 0.9 Baso % (Auto) 0.4 Neut # 8.0 H Lymph # 1.7 [place] # 0.6 Eos # 0.1 Baso # 0.0 PT 12.1 INR 1.1 APTT 29 Sodium 137 Potassium 3.4 L Chloride 99 Carbon Dioxide 18 L Anion Gap 23 H BUN 10 Creatinine 0.6 L Est GFR ( Amer) > 60 Est GFR (Non-Af Amer) > 60 Random Glucose 90 Calcium 9.7 Total Bilirubin 0.6 AST 25 ALT 40 Alkaline Phosphatase 79 Total Protein 7.5 Albumin 4.5 Globulin 3.0 Albumin/Globulin Ratio 1.5 Assessment & Plan - Assessment and Plan (Free Text) Assessment: Patient is a 31yo female with PMHx significant for recurrent nausea/vomiting, migraines, marijuana use (therapeutic for migraines) who presented to the ED with recurrent nausea, vomiting. -Recurrent nausea/vomiting, c/w dx of cyclic vomiting syndrome -Marijuana use Plan: -Counseled on marijuana cessation as this is a trigger for recurrent nausea/ vomiting -Antiemetic therapy as ordered; zofran PRN -Will need to abort this current episode and advance diet as tolerated, starting with clear liquids for lunch today -Protonix 40mg PO QAMAC -Reglan PRN -OK to D/C from GI standpoint if tolerating diet, pain resolved -Given outpatient follow up with Dr Mast next week -Consider addition of preventative medications in the future such as Amitriptyline once acute event improves -Will sign off, thank you for allowing us to participate in the care of your patient - Date & Time Date: 02/01/17 Time: 07:50 <Bhaskar Mast MD - Last Filed: 02/01/17 15:52> Meds - Medications Medications: Current Medications Enoxaparin Sodium (Lovenox) 40 mg SC DAILY [facility] Last Admin: 02/01/17 11:08 Dose: 40 mg Dextrose/Sodium Chloride (Dextrose 5%/0.45% Ns 1000 Ml) 1,000 mls @ 75 mls/hr IV .[id number] [facility] Last Admin: 02/01/17 01:25 Dose: 75 mls/hr Metoclopramide HCl (Reglan) 4 mg IVP Q4 PRN PRN Reason: Nausea/Vomiting Last Admin: 02/01/17 04:07 Dose: 4 mg Morphine Sulfate (Morphine) 2 mg IVP Q6 PRN PRN Reason: Pain, moderate (4-7) Last Admin: 02/01/17 04:06 Dose: 2 mg Ondansetron HCl (Zofran Inj) 4 mg IVP Q4 PRN PRN Reason: Nausea/Vomiting Last Admin: 02/01/17 02:45 Dose: 4 mg Pantoprazole Sodium (Protonix Inj) 40 mg IVP DAILY [facility] Last Admin: 02/01/17 11:08 Dose: 40 mg Results - Vital Signs Recent Vital Signs: Last Vital Signs Temp 97.8 F 02/01/17 13:15 Pulse 55 L 02/01/17 13:15 Resp 17 02/01/17 13:15 BP 99/60 L 02/01/17 13:15 Pulse Ox 100 02/01/17 13:15 - Labs Result Diagrams: 02/01/17 01:05 02/01/17 01:05 Labs: Laboratory Results - last 24 hr 02/01/17 02/01/17 02/01/17 01:05 01:05 01:05 WBC 10.5 RBC 4.54 Hgb 11.8 Hct 36.8 MCV 81.1 MCH 26.1 L MCHC 32.1 L RDW 14.6 H Plt Count 371 MPV 9.6 Neut % (Auto) 76.7 H Lymph % (Auto) 16.3 L [place] % (Auto) 5.7 Eos % (Auto) 0.9 Baso % (Auto) 0.4 Neut # 8.0 H Lymph # 1.7 [place] # 0.6 Eos # 0.1 Baso # 0.0 PT 12.1 INR 1.1 APTT 29 Sodium 137 Potassium 3.4 L Chloride 99 Carbon Dioxide 18 L Anion Gap 23 H BUN 10 Creatinine 0.6 L Est GFR ( Amer) > 60 Est GFR (Non-Af Amer) > 60 Random Glucose 90 Calcium 9.7 Total Bilirubin 0.6 AST 25 ALT 40 Alkaline Phosphatase 79 Total Protein 7.5 Albumin 4.5 Globulin 3.0 Albumin/Globulin Ratio 1.5 Attending/Attestation - Attestation I have personally seen and examined this patient.: Yes I have fully participated in the care of the patient.: Yes I have reviewed all pertinent clinical information: Yes Notes (Text): 02/01/17 15:50 Patient seen with GI fellow in ER. In a nutshell this is a 31 year old female with PMHx significant for recurrent nausea/vomiting, migraines, marijuana use ( therapeutic for migraines) who presented to the ED with recurrent nausea, vomiting after being discharged last week with recurrent symptoms on ondansetron. Last EGD in 2013 which was essentially negative. Counseled on marijuana cessation as this is a trigger for recurrent nausea/vomiting. Antiemetic therapy as needed. PPI daily. Clear liquid diet. Will benefit from outpatient EGD once acute symptoms have resolved- patient is leaving on vacation next week. -Will sign off, thank you for allowing us to participate in the care of your patient
[2017-02-01] MEDS ORDERED: Enoxaparin 40 mg Syringe SC SCH (10:00)
[2017-02-01 13:16] VITALS: O2SAT 100
--- NOTE | 2017-02-01 13:38 | CP.PCM.HP ---
History of Present Illness - History of Present Illness History of Present Illness: Patient is a 31yo female with PMHx significant for recurrent nausea/vomiting, migraines, marijuana use (therapeutic for migraines) who presented to the ED with recurrent nausea, vomiting. She was seen and treated in house from 01/22- (one week ago) for similar symptoms. 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 She tried smoking marijuana to relieve her symptoms and had temporary relief but developed burning epigastric pain which radiated to her chest and abdomen. As symptoms worsened, she came to the ED for further evaluation. She states that she has had episodes like this, practically yearly since 2006. On initially meeting the patient she is resting comfortably and currently does not feel nauseated. She has not tried to eat since arrival. Morphin, Zofran, Phenergan and Pepcid have been given since arrival. She denies any weight loss, hematochezia, melena, hematemesis, dysphagia. Present on Admission - Present on Admission Any Indicators Present on Admission: No History of DVT/PE: No History of Uncontrolled Diabetes: No Urinary Catheter: No Decubitus Ulcer Present: No Review of Systems - Review of Systems All systems: reviewed and no additional remarkable complaints except (As mentioned in HPI) Past Patient History - Past Medical History & Family History Past Medical History?: Yes - Past Social History Smoking Status: Light Smoker < 10 Cigarettes Daily - NEUROLOGICAL Hx Migraine: Yes - MUSCULOSKELETAL/RHEUMATOLOGICAL Hx Falls: No - GASTROINTESTINAL Hx Gastritis: Yes - PSYCHIATRIC Hx Substance Use: Yes (Smokes Marijuana daily) - SURGICAL HISTORY Hx Appendectomy: Yes (04/2014) - ANESTHESIA Hx Anesthesia: No Hx Anesthesia Reactions: No Hx Malignant Hyperthermia: No Meds Home Medications: Home Medication List Medication Instructions Recorded Confirmed Type Metoclopramide [Reglan] 5 mg PO TID PRN #30 tab 02/01/17 Rx Pantoprazole [Protonix EC Tab] 40 mg PO ACB #30 ect 02/01/17 Rx Allergies/Adverse Reactions: Allergies Allergy/AdvReac Type Severity Reaction Status Date / Time hydromorphone [From Dilaudid] AdvReac Verified 01/31/17 19:59 Physical Exam - Head Exam Head Exam: NORMAL INSPECTION - Eye Exam Eye Exam: Normal appearance - ENT Exam ENT Exam: Mucous Membranes Moist - Respiratory Exam Respiratory Exam: Clear to Auscultation Bilateral, NORMAL BREATHING PATTERN - Cardiovascular Exam Cardiovascular Exam: REGULAR RHYTHM, +S1, +S2 - GI/Abdominal Exam GI & Abdominal Exam: Hypoactive Bowel Sounds, Soft - Extremities Exam Extremities exam: Positive for: normal inspection - Neurological Exam Neurological exam: Alert, Normal Gait, Oriented x3 Results - Vital Signs Recent Vital Signs: Last Vital Signs Temp 97.8 F 02/01/17 13:15 Pulse 55 L 02/01/17 13:15 Resp 17 02/01/17 13:15 BP 99/60 L 02/01/17 13:15 Pulse Ox 100 02/01/17 13:15 - Labs Result Diagrams: 02/01/17 01:05 02/01/17 01:05 Labs: Laboratory Results - last 24 hr 02/01/17 02/01/17 02/01/17 01:05 01:05 01:05 WBC 10.5 RBC 4.54 Hgb 11.8 Hct 36.8 MCV 81.1 MCH 26.1 L MCHC 32.1 L RDW 14.6 H Plt Count 371 MPV 9.6 Neut % (Auto) 76.7 H Lymph % (Auto) 16.3 L [place] % (Auto) 5.7 Eos % (Auto) 0.9 Baso % (Auto) 0.4 Neut # 8.0 H Lymph # 1.7 [place] # 0.6 Eos # 0.1 Baso # 0.0 PT 12.1 INR 1.1 APTT 29 Sodium 137 Potassium 3.4 L Chloride 99 Carbon Dioxide 18 L Anion Gap 23 H BUN 10 Creatinine 0.6 L Est GFR ( Amer) > 60 Est GFR (Non-Af Amer) > 60 Random Glucose 90 Calcium 9.7 Total Bilirubin 0.6 AST 25 ALT 40 Alkaline Phosphatase 79 Total Protein 7.5 Albumin 4.5 Globulin 3.0 Albumin/Globulin Ratio 1.5 Assessment & Plan - Assessment and Plan (Free Text) Assessment: Intractable vomiting Marijuana use Reglan 10 mg IV every 8 hours Zofran as needed Protonix IV GI consult IV hydration DC home if tolerates clear liquids to be followed by PMD and GI as outpatient
[2017-02-01 19:23] VITALS: BP 146/56; PULSE 62; RESP 18; TEMP 98
== END 2017-02-01 18:11 | disposition home or self-care (01) ==
LOC: C.ER 19:35 → SUPCPDRO 19:35 → C.9E 23:21
PROVIDERS: ADMIT Internal Medicine Critical Care Medicine; ATTEND Internal Medicine Critical Care Medicine
DX: K29.70 Gastritis, unspecified, without bleeding (principal); G43.A0 Cyclical vomiting, in migraine, not intractable; Z72.0 Tobacco use; F12.90 Cannabis use, unspecified, uncomplicated
CPT/HCPCS: 80053; 85025; 85610; 85730; 96361; 96372; 96374; 96375; 96376; 99285; C9113; G0378; J1650; J2270; J2405; J2550; J2765; J7040; J7042